=== PATIENT | female | born 1970 | race Caucasian/White ===

== ENCOUNTER → 2016-06-27 | Outpatient (CLI) | payer OTHER ==
[~2016-06-27] VITALS: Ht 182.9 cm; Wt 84.4 kg
[~2016-06-27] MED LIST: ALEVE220 M1 PO; AMBIEN 10 MG TA10 MG PO; AZITHROMYCIN 2250 MG PO; CALCIUM 500 +1 EACH PO; CELEBREX 200 M200 MG PO; CIPRO500 MG PO; CIPROFLOXACIN250 M2 PO; CLONAZEPAM; FISH OIL 1,001000 M2 PO; FLEXERIL PO; FLONASE INH; HYDROCODON-ACE1 EAC5 PO; HYSINGLA ER60 MG PO; KADIAN30 MG PO; MELATONIN 10 M1 EACH PO; MOBIC15 MG PO; NORCO 10-325 T1 EACH PO; OXYCONTIN10 MG PO; SLEEP AID PO; TRAMADOL 50 MG50 MG PO; TYLENOL P.M. E1 EAC3 PO; URIBEL CAPSULE1 EACH PO; VALACYCLOVIR1000 MG PO; VALIUM5 MG PO; VALTREX 500 MG500 M1 PO; VALTREX1000 MG PO; VITAMINC500 PO; WELLBUTRIN 100100 M1 PO; WELLBUTRIN SR150 MG PO; XANAX 0.5 MG0.5 M1 PO; XANAX 0.5 MG0.5 MG
--- NOTE | ~2016-06-27 | HPC ---
[facility] [place] [address] PAIN MANAGEMENT CONSULTATION Name: BARRY STREETER Room #: REG IGSEL Jonny#: [id number] Admission: 06/27/16 Attend Phys: Juan Ramon Borden MD Discharge: Date of : 74 Report #: [id number] THIS REPORT FOR: //name// CC: Glenroy Borden DATE OF SERVICE: 06/27/2016 REASON FOR VISIT: Followup visit for chronic upper back pain and cervicalgia related to marked cervicothoracic scoliosis. HISTORY OF PRESENT ILLNESS: The patient returns to pain clinic today in followup for her medication. She is seen regularly for Hysingla 60 mg. She takes 1 tablet a day and has been able to function beautifully at work and at home with no side effects. She has been on an opioid medication under terms of an agreement for nearly 10 years. Each time she comes in, we review the important aspects of that contract. The most important issue I believe for her at this stage is safeguarding her medication. She has a 15-year-old daughter and a 10-year-old son. We talked about the difference between hydrocodone mg tablets; 5 mg versus 60 mg is a dramatic difference. If someone were to steal or take her medication, catastrophe could occur. I have reviewed this at each visit. She keeps it under lock and julien. Today, she again reports her pain score is a 2, dull aching. With the pain, she is able to function well at work and at home. She is able to sit at her desk comfortably. Standing still seems to be the most significant problem. She is also using nonpharmacologic measures to help manage pain including massage and stretching. General health is otherwise good with no other issues. She is seeing no other physicians regularly at this time. PHYSICAL EXAMINATION: VITAL SIGNS: She is 6 feet tall, a BMI of 25.2, a blood pressure of 131/82, heart rate 75 and respirations 16. MUSCULOSKELETAL: Curvature of her spine is quite evident even through her clothing. She has mild tenderness there today. Range of motion of the upper extremities is good. IMPRESSION: 1. Chronic intractable pain related to severe cervicothoracic scoliosis and spondylosis. 2. Management of high risk medication Hysingla. PLAN: I renewed her medications under terms of our agreement for [address] [address] PAIN MANAGEMENT CONSULTATION Name: BARRY STREETER Room #: REG GISEL JuneAnisaMaryaAnisa#: [id number] Admission: 06/27/16 Attend Phys: Juan Ramon Borden MD Discharge: Date of : 74 Report #: [id number] It has been over 2 years since she had a urine drug screen, and I performed that today. This is becoming required by insurance companies in order to provide opioid therapy cautiously. We will see her back in the pain clinic in 3 months. <ELECTRONICALLY SIGNED> By: Juan Ramon Borden MD 06/29/16 1329 [id number] Juan Ramon Borden MD /irma
[2016-06-27 08:53] VITALS: BP 131/82
[2016-07-01 15:05] LABS: EER PAIN MGT INTERP FINAL (())
== END | disposition home or self-care (01) ==
LOC: PAIN 05-31 08:36
PROVIDERS: Anesthesiology Pain Medicine
DX: G89.29 Other chronic pain (principal); M41.83 Other forms of scoliosis, cervicothoracic region; M47.892 Other spondylosis, cervical region

== ENCOUNTER → 2016-09-17 | Outpatient (CLI) | payer OTHER ==
[~2016-09-17] VITALS: Ht 180.3 cm; Wt 82.0 kg
--- NOTE | ~2016-09-17 | HPC ---
[facility] [place] [address] PAIN MANAGEMENT CONSULTATION Name: BARRY STREETER Room #: REG GISEL Drew.#: [id number] Admission: 09/17/16 Attend Phys: Juan Ramon Borden MD Discharge: Date of : 74 Report #: [id number] THIS REPORT FOR: //name// CC: Glenroy Borden DATE OF REGISTRATION: 09/17/2016. Followup visit for chronic upper back pain, cervicalgia, upper thoracic pain related to a significant congenital cervicothoracic scoliosis. Management of high risk medication. HISTORY OF PRESENT ILLNESS: The patient returns to pain clinic today to discuss her medication. She continues to exceptionally well on Hysingla. She is on 60 mg taking one tablet a day in the morning and this has controlled her musculoskeletal pain quite nicely with literally no significant noticeable side effects. 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 She again describes pain relief substantial at a level of 2, when it is present, it is in her left shoulder and upper back. Medication allows her to sit at her desk longer, stands for a longer period of time without severe pain. OTHER MEDICATIONS: Include Celebrex 200 mg as needed, valacyclovir as needed outbreak of , vitamin C, alprazolam and fluticasone. ALLERGIES: None. PHYSICAL EXAMINATION: GENERAL: She is a delightful 46-year-old pleasant, alert and oriented. VITAL SIGNS: Blood pressure 136/80, heart rate 86, respirations 14. Her BMI is 25.2. EXTREMITIES: She does have very mild tenderness in her cervical spine where there is notable curvature. No weakness of the upper extremities or pain. IMPRESSION: 1. Chronic pain with severe cervicothoracic scoliosis congenital. 2. Management of high risk medication, Hysingla 60 mg 1 tablet a day. This is related, morphine milligram equivalency of 60. We reviewed our opioid agreement last signed in 2015. We talked about the aspects of opioid prescribing for chronic intractable pain on many occasions and reviewed the CDC guidelines today. Shared with her, the results of her last urine drug screen which pleased report was appropriate with only evidence of hydrocodone in the urine as expected from this medication. [address] [address] PAIN MANAGEMENT CONSULTATION Name: BARRY STREETER Room #: REG CONRADRavin Fuller#: [id number] Admission: 09/17/16 Attend Phys: Juan Ramon Borden MD Discharge: Date of : 74 Report #: [id number] Medication provided for 3 months under terms of our agreement. I will see her back in 3 months' time. By: 1119 [id number] Juan Ramon Borden MD /nt
[2016-09-17 09:06] VITALS: BP 137/80
== END | disposition home or self-care (01) ==
LOC: PAIN 07:00
DX: M41.83 Other forms of scoliosis, cervicothoracic region (principal)

== ENCOUNTER → 2016-12-20 | Outpatient (CLI) | payer OTHER ==
[~2016-12-20] VITALS: Ht 180.3 cm; Wt 80.3 kg
[2016-12-20 09:38] VITALS: BP 133/75
== END | disposition home or self-care (01) ==
LOC: PAIN 06:36
DX: M54.12 Radiculopathy, cervical region (principal); M54.14 Radiculopathy, thoracic region; M41.84 Other forms of scoliosis, thoracic region; G89.29 Other chronic pain; F11.20 Opioid dependence, uncomplicated; G47.00 Insomnia, unspecified; Z87.891 Personal history of nicotine dependence

== ENCOUNTER → 2017-03-11 | Outpatient (CLI) | payer OTHER ==
[~2017-03-11] VITALS: Ht 180.3 cm; Wt 78.5 kg
--- NOTE | ~2017-03-11 | HPC ---
[facility] [address] [address] PAIN MANAGEMENT CONSULTATION Name: BARRY STREETER Room #: REG GISEL JuneAnisaMarya.#: [id number] Admission: 03/11/17 Attend Phys: Juan Ramon Borden MD Discharge: Date of : 74 Report #: [id number] THIS REPORT FOR: //name// CC: Glenroy Borden DATE OF SERVICE: 03/11/2017 REASON FOR VISIT: Followup visit for cervical and thoracic pain related to marked scoliosis of the cervicothoracic spine. HISTORY OF PRESENT ILLNESS: The patient returns to pain clinic today for renewal of her Hysingla. She has done well with once a day medication. She has had some exacerbation of pain over the last 6 months. I have given her Celebrex as a co-analgesic. She has had some insomnia, takes 0.5 mg of Xanax for sleep and we have discussed the interaction between opioids and benzodiazepines. 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 She is doing well socially and enjoys her family. At one time, she had significant other, but currently is between relationships. She took a nice vacation in the summer with her children. Her mood has been good. She denies depression or anxiety. PHYSICAL EXAMINATION: GENERAL: She is pleasant, alert and oriented, without signs of overmedication. MUSCULOSKELETAL: Examination of the spine reveals localized pain and tenderness where she has marked scoliotic curve in the thoracolumbar region. She has some mild pain radiating into the left arm. IMPRESSION: 1. Chronic cervicalgia with radiculopathy related to marked cervicothoracic scoliosis with rotation. 2. Management of opioids under strict adherence to an opioid agreement within the CDC guidelines. 3. Insomnia. PLAN: Medications were renewed under terms of our agreement and I plan to see her back in the pain clinic in 3 months. Time spent with the patient 15 minutes. By: [id number] Juan Ramon Borden MD /nt
[2017-03-11 08:53] VITALS: BP 133/58
== END | disposition home or self-care (01) ==
LOC: PAIN 07:02
DX: M54.2 Cervicalgia (principal); M41.83 Other forms of scoliosis, cervicothoracic region; G47.00 Insomnia, unspecified; Z87.891 Personal history of nicotine dependence

== ENCOUNTER → 2017-06-20 | Outpatient (CLI) | payer OTHER ==
[~2017-06-20] VITALS: Ht 180.3 cm; Wt 81.4 kg
[~2017-06-20] MED LIST changes: +ADVIL200 M3 PO; +MACRODANTIN50 M1 PO
--- NOTE | ~2017-06-20 | HPC ---
[facility] [place] [address] PAIN MANAGEMENT CONSULTATION Name: BARRY STREETER Jamia Room #: REG CONRAD Drew.#: [id number] Admission: 06/20/17 Attend Phys: Juan Ramon Borden MD Discharge: Date of : 74 Report #: [id number] THIS REPORT FOR: //name// CC: Glenroy Borden DATE OF SERVICE: 06/20/2017 Followup visit for chronic cervical and thoracic pain with scoliosis of the spine and musculoskeletal components. Management of high risk medication. The patient returns to pain clinic today and is doing very well. Pain is managed. 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 Pain score is 3 with medication. She had some breakthrough medication earlier, but has been able to get by without it after changing some of her work positions. She has had no significant side effects of medication and is grateful that it has allowed her to be much more functional as well as relieved her pain. She has had no misuse or abuse of her medication noted, no red flag behavior, she is on time for her medicines. She receives all medication just from our clinic and is aware of the CDC guidelines and her opioid agreement. We reviewed her MME which is 60 mg with the Hysingla and when she took a little bit her breakthrough pain was no higher than 70. She will carefully monitor her medication. PHYSICAL EXAMINATION: Pleasant, alert and oriented. Blood pressure is 123/66, heart rate 72. BMI is 25. She has tenderness in the upper back and in the area of her curvature. No radicular pain is noted today. IMPRESSION: 1. Chronic cervicalgia with radiculopathy, much improved. She has scoliosis with rotation. 2. Management of opioids under an opioid agreement. 3. Insomnia, improved. PLAN: 1. Medication renewed under terms of our agreement. 2. Referral to Doni Moore for 1-2 sessions of exercise education for cervical thoracic scoliosis. 3. Follow up in 3 months. <ELECTRONICALLY SIGNED> By: Juan Ramon Borden MD 06/24/17 1048 [id number] Juan Ramon Borden MD /nt
[2017-06-20 10:06] VITALS: BP 123/66
== END ==
LOC: PAIN 06:46
DX: M54.12 Radiculopathy, cervical region (principal); M41.84 Other forms of scoliosis, thoracic region; M41.82 Other forms of scoliosis, cervical region; G47.00 Insomnia, unspecified; F11.90 Opioid use, unspecified, uncomplicated; Z79.899 Other long term (current) drug therapy

== ENCOUNTER → 2017-08-29 | Outpatient (CLI) | payer OTHER ==
[~2017-08-29] VITALS: Ht 180.3 cm; Wt 83.0 kg
--- NOTE | ~2017-08-29 | HPC ---
[facility] [place] [address] PAIN MANAGEMENT CONSULTATION Name: BARRY STREETER Jamia Room #: REG [facility] Drew.#: [id number] Admission: 08/29/17 Attend Phys: Juan Ramon Borden MD Discharge: Date of : 74 Report #: [id number] THIS REPORT FOR: //name// CC: Glenroy Borden DATE OF SERVICE: 08/29/2017 Followup visit for severe cervicothoracic scoliosis and new onset low back pain. The patient returns to pain clinic today for her medication. She is about 3 weeks early, but we decided to see her because she has ran out of a very small amount of breakthrough medication that I provided her. She has done exceptionally well with the once a day Hysingla 60 mg tablet. About 6 months ago, I began providing her with hydrocodone 10/325, #30 tablets to be used for breakthrough pain over the course of 3 months. On certain days, she feels that she needs a slight increase in medication and this was offered as a breakthrough. She used all #30 tablets over the course of about 80 days. She is here today requesting a refill. 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 Her functional assessment tool is 22/70 showing good activities with low impact. She is at low risk for addiction at a 3. Her social interactions are good. She denies depression or anxiety. PHYSICAL EXAMINATION: VITAL SIGNS: She is 5 feet 11 inches with a BMI of 25.5. Blood pressure is 149/70, heart rate 95, respirations 14 with an O2 sat of 100%. Pain intensity is a 4/10. Rotational curvature is noted in the cervical, thoracic spine. She also has a curvature in the thoracolumbar region, compensatory. Pain radiates somewhat down into the leg today, which is new consistent with radiculopathy. She has not had an MRI of her lower back. IMPRESSION: 1. Chronic cervicalgia with radiculopathy related to marked cervicothoracic scoliosis with rotation. 2. New onset lower back pain from her compensatory curve. This is in the lumbar and thoracic region. 3. Management of opioids under opioid agreement and within the CDC guideline. She is under 90 morphine equivalents with an average daily use of about 65 MME. PLAN: I renewed her medications with release dates for 4 and 8 weeks today, that should get her into November. She has one prescription to fill from her visit in May. I renewed her hydrocodone for her with a prescription for #30 tablets [place] [address] PAIN MANAGEMENT CONSULTATION Name: BARRY STREETER Room #: REG [facility].#: [id number] Admission: 08/29/17 Attend Phys: Juan Ramon Borden MD Discharge: Date of : 74 Report #: [id number] I plan to see her back in the pain clinic in 3-1/2 months. <ELECTRONICALLY SIGNED> By: Juan Ramon Borden MD 09/30/17 1408 1507 21 Juan Ramon Borden MD /irma
[2017-08-29 13:51] VITALS: BP 149/70
== END ==
LOC: PAIN 10:29
DX: M41.83 Other forms of scoliosis, cervicothoracic region (principal); M54.12 Radiculopathy, cervical region; Z79.891 Long term (current) use of opiate analgesic

== ENCOUNTER → 2017-11-25 | Outpatient (CLI) | payer OTHER ==
[~2017-11-25] VITALS: Ht 180.3 cm; Wt 81.6 kg
[~2017-11-25] MED LIST changes: -MACRODANTIN50 M1 PO
--- NOTE | ~2017-11-25 | HPC ---
[facility] [place] [address] [address] PAIN MANAGEMENT CONSULTATION Name: BARRY STREETER Jamia Room #: REG [facility] Drew.#: [id number] Admission: 11/25/17 Attend Phys: Juan Ramon Borden MD Discharge: Date of : 74 Report #: [id number] THIS REPORT FOR: //name// CC: Glenroy Borden DATE OF SERVICE: 11/25/2017 Followup visit for cervicothoracic scoliosis with chronic pain. The patient returns to pain clinic today and she has reports and x-ray films taken of the low back as well as the neck. These baseline films were taken when she was complaining of new onset low back pain in August. I did not review the films, the report of both. The low back report seems fairly mild. It describes mild facet arthropathy in the lower lumbar spine and a little bit of disk bulging at L5-S1. For someone who is 47 years of age, I think that these findings are fairly benign. I think there is no treatment specific that I would recommend other than continued exercise and physical therapy approach. She needs to be cautious about her use of nonsteroidal anti-inflammatory drugs on a daily basis. She has been followed for some renal issues by the urologists at . I did ask for her BUN and creatinine and glomerular filtration rate. The GFR to be sent to our office today and it looks as though her kidney function is quite good. I think she is okay taking nonsteroidal anti-inflammatory drugs as long she closely monitors it. It does provide some benefit for her neck. We next reviewed her neck x-rays. She seemed a bit surprised to find that she had "arthritis" of her spinal joints. We discussed this at some length. She has a dextroconvex curvature of the cervical spine with a compensatory mechanism for the levoscoliosis of the thoracic spine. This causes a straightening of the cervical lordosis and a little bit of retrolisthesis of C4-C5 and C5-C6. As a result, you would expect there are some degenerative disk changes and degenerative facet arthropathy that is prominent mostly at C4-C5 and C5-C6. This does create some foraminal narrowing, although she is asymptomatic from that without arm or shoulder pain. Most of her pain remains in the back and I think this is consistent with cervicothoracic spondylosis. She would respond nicely I think to the combination of her hydrocodone as well as ibuprofen and she can continue on that as I described above. PHYSICAL EXAMINATION: She is an attractive 47-year-old, 5 feet 11 inches, BMI remains low at 25.1. Her blood pressure is 119/57, heart rate 73. Pain score is low at 2 today. She is not a fall risk. She moves easily from standing position and walks without difficulty. I did examine her low back and hips [address] [address] PAIN MANAGEMENT CONSULTATION Name: BARRY STREETER Jamia Room #: REG [facility] Jonny#: [id number] Admission: 11/25/17 Attend Phys: Juan Ramon Borden MD Discharge: Date of : 74 Report #: [id number] today. She has no pain with internal and external rotation other than some mild exacerbation of a little tenderness in the sacroiliac joint on the left. IMPRESSION: 1. Chronic cervicalgia with radiculopathy at this time. She has scoliosis with rotation. 2. Low back pain, which is generally related to expected degenerative changes for age. 3. Management of opioids under terms of written opioid agreement and within the CDC guideline. She is currently receiving a single tablet of Hysingla 60 mg in the morning and I allow her to take 1 hydrocodone for breakthrough pain for activities that are extensive throughout the day and she needs a little boost. I talked importantly about safeguarding medications. She is able to be highly functional and is grateful to the pain relief that she gets from her medication. She denies any significant side effects and understands the importance of safeguarding all medications under terms of our agreement. Followup visit planned in 3 months. By: 1102 1534 Juan Ramon Borden MD /nt
[2017-11-25 10:57] VITALS: BP 119/57
== END ==
LOC: PAIN 06:53
DX: M41.83 Other forms of scoliosis, cervicothoracic region (principal); M54.5 Low back pain; F11.90 Opioid use, unspecified, uncomplicated

== ENCOUNTER → 2018-02-10 | Outpatient (CLI) | payer OTHER ==
[~2018-02-10] VITALS: Ht 180.3 cm; Wt 78.9 kg
[~2018-02-10] MED LIST changes: +MACRODANTIN50 M1 PO
--- NOTE | ~2018-02-10 | CRIT ---
[facility] [place] [address] CRITICAL CARE NOTE Name: BARRY STREETER Jamia Room #: REG GISEL Fuller#: [id number] Admission: 02/10/18 Attend Phys: Juan Ramon Borden MD Discharge: Date of : 74 Report #: [id number] THIS REPORT FOR: //name// CC: Glenroy Rasmussen DATE OF SERVICE: 02/10/2018 Followup visit for severe cervicothoracic scoliosis and chronic pain. The patient returns to the pain clinic today doing reasonably well. The low back pain that was a problem for her at last visit has improved with exercise. She reports that she is doing well at work and at home. She has also been more active in her samaritan over the last 1-2 years. She seems stable and happy. She denies any significant side effects from her medication, even constipation. She is grateful for the pain relief that it provides, and she has a pain intensity of 2 taking one tablet a day. This is hydrocodone 60 mg in the form of Hysingla, a long-acting slow release preparation. She has been an excellent responder to the medication. We talked about the opioid crisis and particularly the extreme responsibility that she has to safeguard her medications. As she has younger children, we talked about the role of safeguarding medications when there are children in the home. All other medications reviewed and reconciled, there have been no significant changes. There have been no other changes in her medical history as well. Pain is also managed by nonpharmacologic measures including massage, stretching and exercise. She has learned to pace herself. She understands the concept of pain management well with many years of visits to our clinic. PHYSICAL EXAMINATION: GENERAL: She is pleasant, alert and oriented, without any signs of overmedication. VITAL SIGNS: Her blood pressure 123/69, heart rate 90, respirations 16. BMI is 24.3. EXTREMITIES: She moves easily from sitting to standing position. She has only mild tenderness in her upper back in the area where she has a notable scoliosis in the cervical thoracic region. IMPRESSION: 1. Chronic upper back pain with cervicothoracic scoliosis. 2. Management of high risk medications under terms of written opioid agreement. [address] [address] CRITICAL CARE NOTE Name: BARRY STREETER Jamia Room #: REG [facility].#: [id number] Admission: 02/10/18 Attend Phys: Juan Ramon Borden MD Discharge: Date of : 74 Report #: [id number] PLAN: I renewed her medications for 3 months. We have also reviewed her prescription monitoring through the [facility] PDMP. It shows medications provided through our clinic including the Hysingla as well as a small amount of hydrocodone 10/325, which she uses for severe pain no more than once or twice a day when the pain is severe. By: 1213 0201 Juan Ramon Borden MD /irma
[2018-02-10 09:34] VITALS: BP 123/69
== END ==
LOC: PAIN 06:56
DX: M41.83 Other forms of scoliosis, cervicothoracic region (principal); G89.29 Other chronic pain; Z79.891 Long term (current) use of opiate analgesic

== ENCOUNTER → 2018-05-08 | Outpatient (CLI) | payer OTHER ==
[~2018-05-08] VITALS: Ht 180.3 cm; Wt 81.6 kg
--- NOTE | ~2018-05-08 | HPC ---
[facility] [place] [address] PAIN MANAGEMENT CONSULTATION Name: BARRY STREETER Jamia Room #: REG GISEL Russell.#: [id number] Admission: 05/08/18 Attend Phys: Juan Ramon Borden MD Discharge: Date of : 74 Report #: [id number] THIS REPORT FOR: //name// CC: Glenroy Borden DATE OF SERVICE: 05/08/2018 Followup visit for chronic neck and shoulder pain. The patient returns to pain clinic today for 3-month followup and renewal of her pain medication. She is currently taking Hysingla 60 mg once a day and I have provided with a breakthrough medication of hydrocodone 10/325 that she can take on an as needed basis. Ninety tablets seem to last about 3 months. She takes it cautiously and carefully. She safeguards her medication. She has a teenager in the home. She denies any significant side effects. With medications, she is able to work fulltime and is doing well. We talked about her job today and she sounds enthusiastic about work and upbeat about her responsibilities and activities there. Without pain medication, she does not feel she would be capable of working at the same level. She understands the opioid agreement clearly and she understands that at her MME of roughly 70, she is in the second category of the CDC guideline. We have been trying to keep people at the lowest effective dose. She is doing well at this level. For the time being, I am not going to adjust her medication down, but I have told her that in the future, we may consider reducing her slowly if possible. It is just hard to make any changes when she is doing so well on this nice long-acting medication that provides stable pain relief around the clock for her. PHYSICAL EXAMINATION: Pleasant, alert and oriented, without signs of depression, anxiety, or overmedication. She is 5 feet 11 and 179 pounds with a BMI of 25.1. Pain intensity is a 2 with medication. Blood pressure 126/67, heart rate 79. Notable scoliosis is seen in the neck and upper back. Mild tenderness in that region. No radiating pain into the arms at this time. IMPRESSION: 1. Chronic intractable upper back pain with spondylosis of the cervical thoracic spine with scoliosis. 2. Management of high risk medications under terms of written opioid agreement. [address] [address] PAIN MANAGEMENT CONSULTATION Name: BARRY STREETER Room #: REG [facility] Drew.#: [id number] Admission: 05/08/18 Attend Phys: Juan Ramon Borden MD Discharge: Date of : 74 Report #: [id number] PLAN: I renewed her medications with plan to see her back in 3 months. By: 1230 1805 Juan Ramon Borden MD /nt
[2018-05-08 09:42] VITALS: BP 126/67
== END ==
LOC: PAIN 04:46
DX: M47.893 Other spondylosis, cervicothoracic region (principal); M41.83 Other forms of scoliosis, cervicothoracic region; G89.4 Chronic pain syndrome

== ENCOUNTER → 2018-08-04 | Outpatient (CLI) | payer OTHER ==
[~2018-08-04] VITALS: Ht 180.3 cm; Wt 78.9 kg
[2018-08-04 10:58] VITALS: BP 116/81
--- NOTE | 2018-08-04 11:08 | NUR ---
Pain Clinic Assessment: 1. History of Osteoarthritis: Not Applicable History of Rheumatoid Arthritis: Not Applicable 2. Height: 5 ft. 11 in. 180.3 cm. Weight: 174.0 lb. oz. 78.926 kg. Patient's BMI: 24.3 3. Vital Signs: BP: 116/81 Pulse: 78 Resp: 16 Temp: 02 Sat: 100 ECG Mon: 4. Pain Intensity: 2 5. Fall Risk: Dizziness: N Needs help standing or walking: N Fallen in the last 3 months: N Fall risk comments: 6. Patient on Blood Thinner: None 7. History of Hypertension: N 8. Opioid Therapy greater than 6 weeks: Y Opiate Contract Signed: 08/29/17 9. Risk Assessment Tool Provided: LOW RISK 3 10. Functional Assessment Tool: 11. Recreational Drug Use: Never Drug Type: Tobacco Use: Former Smoker Tobacco Type: Amount or Packs/day: How Many Years: Alcohol Use: Yes Frequency: Weekly Quant: WINE 2 A WEEK
--- NOTE | 2018-08-05 07:13 | HPC ---
[facility] [address] [place] [address] PAIN MANAGEMENT CONSULTATION Name: FERDINANDBARRY P Room #: REG GISEL Fuller#: [id number] Admission: 08/04/18 Attend Phys: Yana Anthony Discharge: Date of : 74 Report #: [id number] THIS REPORT FOR: //name// CC: Yana Anthony Glenroy Rasmussen DATE OF SERVICE: 08/04/2018 CHIEF COMPLAINT: Chronic neck and shoulder pain. HISTORY OF PRESENT ILLNESS: This is a very pleasant 48-year-old female that returns to the pain clinic today for her ongoing neck and shoulder pain. She tells me her pain today is 2/10, worse when she is standing for prolonged periods of time or sitting at her desk for a prolonged time. She tells me her medications are very beneficial as well as stretching and using massage. She is able to work and be active with her family with these medications. She rates it as a 2/10 today. She denies any problems with constipation or daytime sleepiness. She tells me that she has been sick several times this winter and not feeling up to par and has been more tired than normal, but does not feel that this is associated with her medicines in anyway. She tells me that she is getting ready to go on vacation with her family. She has a daughter that is a Senior, so it is an exciting time for her and her family. The patient would like a refill of her medications today. ALLERGIES: No known drug allergies. CURRENT LIST OF MEDICATIONS: Hysingla 60 mg tablets once a day, hydrocodone 10/325 half to one tablet daily, Macrodantin 50 mg as needed, valacyclovir 1000 mg daily as needed, ascorbic acid daily, Xanax 0.5 mg at bedtime as needed, Flonase as needed. PQRS: 1. She denies history of osteoarthritis or rheumatoid arthritis. 2. Height is 5 feet 11 inches, weight is 174. BMI is 24. 3. Vital Signs: Blood pressure 116/81, pulse is 76, respirations 16, oxygen sat is 100%. 4. Pain score is 2/10. 5. Fall risk: Denies dizziness, does not need help walking or standing. Has not fallen in the last 3 months. 6. The patient is not on any blood thinners, does not take medicines for hypertension. 7. Opioid therapy was greater than 6 weeks, therefore, opioid contract is on the chart. 8. Risk assessment tool is low. Her functional assessment is 22/70. 9. Recreational drug use, she denies. She is a former smoker and occasionally drinks alcohol. [address] [address] PAIN MANAGEMENT CONSULTATION Name: CARLINE STREETERELBERT Blandon Room #: REG [facility] Jonny#: [id number] Admission: 08/04/18 Attend Phys: Yana Anthony Discharge: Date of : 74 Report #: [id number] 10. We did check the prescription monitoring system, the patient is filling appropriately from Dr. Juan Ramon Borden for her narcotic medications. There is also a recent drug screen on the chart on the patient. PHYSICAL EXAMINATION: GENERAL: The patient is a well-developed, well-nourished 48-year-old female that appears her stated age. She is alert and orientated and her affect is appropriate. HEENT: Normocephalic, atraumatic. Extraocular muscles are intact. Mucous membranes are moist. NECK: Without adenopathy and she has good range of motion in her neck today, but she does have notable scoliosis noted in her neck and upper back. MUSCULOSKELETAL: Mild tenderness noted in her upper back. The patient walks with a normal gait. Muscle strength is judged to be 5/5 for all major muscle groups in upper extremities and lower extremities bilaterally. ASSESSMENT: 1. 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 2. Management of high risk medication under terms of an opioid agreement. We reviewed the fact that opiate medications are being used to provide analgesia adequate to support activities of daily living, not attempting to achieve a specific pain score on the 0-10 Visual Analog Scale. The current opiate medications are providing sufficient analgesia to allow the patient to participate in activities of daily living. The patient is not exhibiting any aberrant behavior suggestive of drug diversion. The patient is not having any adverse reactions to medications. The patient is not suffering from daytime somnolence or mental acuity changes. The patient is managing opiate-induced constipation with appropriate lweh-zzk-alvisfp agents and dietary considerations. The patient was counseled on concern for caution with operating a motor vehicle while using opiate medications. A physical exam was performed and the patient's functional status was evaluated. All patients with back pain were advised against the bed rest greater than 4 days and were advised to return to normal activities. Pain score assessment was noted and the treatment plan was reviewed with the patient. All current medications, both prescribed and OTC were reviewed and reconciled on the electronic medical record. Tobacco screening was accomplished and smoking cessation was advised when indicated. BMI was noted and diet/exercise modification was recommended for all patients following outside normal parameters. I reviewed with the patient today their responsibilities to safeguard prescription medications, reviewed their responsibility to utilize medications only as prescribed by the physician. They are to seek and receive pain [address] [address] PAIN MANAGEMENT CONSULTATION Name: BARRY STREETER Room #: REG [facility]#: [id number] Admission: 08/04/18 Attend Phys: Yana Avinaalicia Discharge: Date of : 74 Report #: [id number] medications only from 1 physician group ( [facility]). They are to use 1 pharmacy and keep the clinic informed if they change pharmacies. Their responsibilities include making followup visits in a timely fashion and to avoid abrupt discontinuation of medication usage. Their responsibilities further include bringing their medications (bottles from the pharmacy with residual pills) to the visit for possible confirmation of pill counts and the patient understands it is their responsibility to submit to random drug screens to ensure both that the medications prescribed are present, and that no other controlled substances are present. All prescriptions provided today were generated electronically. PLAN: 1. We discussed treatment options with the patient today. The patient tells me that the Hysingla is working well for her, she is able to work and be active with her family and her current Hysingla is 60 mg once a day dose. Scripts given for that for #30 to be refilled today, 4-week for a week and an 8-week. Second medication is hydrocodone 10/325 to take half to one tablet daily. 2. The patient is going to be traveling out of the country in the next month. I did remind her to safeguard her medications at all times and keep them locked up safe in her room when she is not with them. 3. The patient falls in the low MME guidelines per the CDC, about 70 MME per day; therefore it is appropriate for her to have 3 months of medications per clinic guidelines. The patient is seen in collaboration with and Dr. Borden did also see the patient today at this visit. <ELECTRONICALLY SIGNED> By: Yana Anthony 08/05/18 0713 [id number] Yana Anthony /nt
== END ==
LOC: PAIN 07:13
DX: M41.82 Other forms of scoliosis, cervical region (principal); M41.84 Other forms of scoliosis, thoracic region; M47.892 Other spondylosis, cervical region; M47.894 Other spondylosis, thoracic region; G89.4 Chronic pain syndrome; Z79.899 Other long term (current) drug therapy; Z79.891 Long term (current) use of opiate analgesic

== ENCOUNTER → 2018-10-27 | Outpatient (CLI) | payer OTHER ==
[~2018-10-27] VITALS: Ht 180.3 cm; Wt 79.7 kg
[2018-10-27 09:05] VITALS: BP 120/71
--- NOTE | 2018-10-27 09:17 | NUR ---
Pain Clinic Assessment: 1. History of Osteoarthritis: Not Applicable History of Rheumatoid Arthritis: Not Applicable 2. Height: 5 ft. 11 in. 180.3 cm. Weight: 175.8 lb. oz. 79.742 kg. Patient's BMI: 24.5 3. Vital Signs: BP: 120/71 Pulse: 82 Resp: 16 Temp: 02 Sat: 100 ECG Mon: 4. Pain Intensity: 2-3 5. Fall Risk: Dizziness: N Needs help standing or walking: N Fallen in the last 3 months: N Fall risk comments: 6. Patient on Blood Thinner: None 7. History of Hypertension: N 8. Opioid Therapy greater than 6 weeks: Y Opiate Contract Signed: 08/29/17 9. Risk Assessment Tool Provided: LOW RISK 3 10. Functional Assessment Tool: 11. Recreational Drug Use: Never Drug Type: Tobacco Use: Former Smoker Tobacco Type: Amount or Packs/day: How Many Years: Alcohol Use: Yes Frequency: Weekly Quant: 1-2 A WEEK
--- NOTE | 2018-10-28 14:37 | HPC ---
[facility] [address] [place] [address] PAIN MANAGEMENT CONSULTATION Name: FERDINANDBARRY P Room #: REG GISEL Fuller#: [id number] Admission: 10/27/18 ������������������ Attend Phys: Yana Anthony Discharge: ������������������ Date of : 74 Report #: [id number] THIS REPORT FOR: //name// CC: Yana Anthony Glenroy Robledoon DATE OF SERVICE: 10/27/2018 CHIEF COMPLAINT: Chronic neck and shoulder pain. HISTORY OF PRESENT ILLNESS: This is a very pleasant 48-year-old female who returns to the Pain Clinic today for refill of her medications for her ongoing neck and shoulder pain. She tells me that her pain score is a 2-3 today, which is an average score for her of a dull achy tingly pain. She said it is worse if she is standing too long or riding her bike too long. Medications, massage and stretching are helpful. She feels that the Hysingla has helped her tremendously. She takes that on a daily basis and occasional hydrocodone half a pill once or twice a day. She denies any problems with constipation or daytime sleepiness. She does not feel overmedicated with these medicines. She would like a refill today. ALLERGIES: No known drug allergies. MEDICATIONS: Hydrocodone 10/325 half to one tablet a day, Hysingla 60 mg daily, Advil 200 mg daily, valacyclovir p.r.n., ascorbic acid daily, Xanax 0.5 mg at bedtime p.r.n. and Flonase as needed. PQRS: 1. She denies history of osteoarthritis or rheumatoid arthritis. 2. Height is 5 feet 11 inches, weight is 175, BMI is 24. 3. Vital signs: Blood signs 120/71, pulse is 82, respirations 16, oxygen sat is 100. 4. Pain score is 2/10. 5. Fall risk. Denies dizziness. Does not need to help walking or standing, has not fallen in the last 3 months. 6. The patient is not on any blood thinners or any hypertension medicines. 7. Opioid therapy is greater than 6 weeks. Therefore, an opioid signed contract is on the chart. 8. Risk assessment tool is low. Functional assessment is . 9. Recreational drug use, she denies. She is a former smoker and does use Nicorette gum and she frequently uses alcohol 1-2 drinks a week. We did check the prescription monitoring system. The patient is filling appropriately from Dr. Juan Ramon Borden for her narcotics. We did check a random drug screen on this patient today. There are no aberrant behaviors noted and she does tell me she safeguards her medications. [address] [address] PAIN MANAGEMENT CONSULTATION Name: FERDINANDBARRY P Room #: REG GISEL Fuller#: [id number] Admission: 10/27/18 ������������������ Attend Phys: Ayna SOULEYMANE Anthony Discharge: ������������������ Date of : 74 Report #: [id number] PHYSICAL EXAMINATION: GENERAL: This is a well-developed, well-nourished, 48-year-old female, who returns to the pain clinic today. She is alert and orientated and her affect is appropriate. HEENT: Normocephalic, atraumatic. Extraocular eye muscles are intact. Mucous membranes are moist. NECK: Without adenopathy. She does have good range of motion, does have some scoliosis noted in her neck and thoracic area. MUSCULOSKELETAL: Complains of some tenderness in her thoracic region. She walks with a normal gait. Muscle strength in upper and lower extremities is judged to be 5/5 from all major muscle groups bilaterally. ASSESSMENT: 1. Chronic intractable upper back pain with spondylosis of the cervical and thoracic region with scoliosis. 2. Management of high risk medications under terms of written opioid agreement. We reviewed the fact that opiate medications are being used to provide analgesia adequate to support activities of daily living, not attempting to achieve a specific pain score on the 0-10 Visual Analog Scale. The current opiate medications are providing sufficient analgesia to allow the patient to participate in activities of daily living. The patient is not exhibiting any aberrant behavior suggestive of drug diversion. The patient is not having any adverse reactions to medications. The patient is not suffering from daytime somnolence or mental acuity changes. The patient is managing opiate-induced constipation with appropriate tnsy-bgz-ecmmrrb agents and dietary considerations. The patient was counseled on concern for caution with operating a motor vehicle while using opiate medications. A physical exam was performed and the patient's functional status was evaluated. All patients with back pain were advised against the bed rest greater than 4 days and were advised to return to normal activities. Pain score assessment was noted and the treatment plan was reviewed with the patient. All current medications, both prescribed and OTC were reviewed and reconciled on the electronic medical record. Tobacco screening was accomplished and smoking cessation was advised when indicated. BMI was noted and diet/exercise modification was recommended for all patients following outside normal parameters. I reviewed with the patient today their responsibilities to safeguard prescription medications, reviewed their responsibility to utilize medications only as prescribed by the physician. They are to seek and receive pain medications only from 1 physician group ([facility]). They are to use 1 pharmacy and keep the clinic informed if they change pharmacies. Their responsibilities include making followup visits in a timely fashion and to avoid [address] [address] PAIN MANAGEMENT CONSULTATION Name: BARRY STREETER Room #: REG [facility] Jonny#: [id number] Admission: 10/27/18 ������������������ Attend Phys: Yana Anthony Discharge: ������������������ Date of : 74 Report #: [id number] abrupt discontinuation of medication usage. Their responsibilities further include bringing their medications (bottles from the pharmacy with residual pills) to the visit for possible confirmation of pill counts and the patient understands it is their responsibility to submit to random drug screens to ensure both that the medications prescribed are present, and that no other controlled substances are present. All prescriptions provided today were generated electronically. PLAN: 1. We discussed treatment options with the patient today. The patient tells me she is doing fairly well on her current medication regimen, would like a refill of these medicines. Scripts given today for Hysingla 60 mg, #30 for today, 4-week and 8-week release and hydrocodone 10/325, #90. This places the patient at 65 morphine milliequivalents per day, which is in the CDC guidelines between 50 and 90. 2. The patient will follow up in [address] Juan Ramon Borden did see the patient and collaborated care on this patient today. 3. We did check a urine drug screen today for a random drug screen. ��������������������������������������������� <ELECTRONICALLY SIGNED> ���������������������������������������� By: Yana Anthony ��������������������������������������������� 10/28/18 1437 [id number] [id number] Yana Anthony /irma
== END ==
LOC: PAIN 06:51
DX: G89.29 Other chronic pain (principal); M47.812 Spondylosis without myelopathy or radiculopathy, cervical region; M47.814 Spondylosis without myelopathy or radiculopathy, thoracic region; M41.84 Other forms of scoliosis, thoracic region; Z79.899 Other long term (current) drug therapy; Z79.891 Long term (current) use of opiate analgesic

== ENCOUNTER → 2019-01-29 | Outpatient (CLI) | payer BC ==
[~2019-01-29] VITALS: Ht 180.3 cm; Wt 77.1 kg
[2019-01-29 08:49] VITALS: BP 122/67
--- NOTE | 2019-01-29 08:53 | NUR ---
Pain Clinic Assessment: 1. History of Osteoarthritis: Not Applicable History of Rheumatoid Arthritis: Not Applicable 2. Height: 5 ft. 11 in. 180.3 cm. Weight: 170.0 lb. oz. 77.112 kg. Patient's BMI: 23.7 3. Vital Signs: BP: 122/67 Pulse: 80 Resp: 16 Temp: 02 Sat: 100 ECG Mon: 4. Pain Intensity: 2 5. Fall Risk: Dizziness: N Needs help standing or walking: N Fallen in the last 3 months: N Fall risk comments: 6. Patient on Blood Thinner: None 7. History of Hypertension: N 8. Opioid Therapy greater than 6 weeks: Y Opiate Contract Signed: 08/29/17 9. Risk Assessment Tool Provided: LOW RISK 3 10. Functional Assessment Tool: 11. Recreational Drug Use: Never Drug Type: Tobacco Use: Former Smoker Tobacco Type: Amount or Packs/day: How Many Years: Alcohol Use: Yes Frequency: Weekly Quant:
--- NOTE | 2019-01-30 11:23 | HPC ---
[facility] [address] [place] [address] PAIN MANAGEMENT CONSULTATION Name: CARLINE STREETERELBERT Blandon Room #: REG GISEL Fuller#: [id number] Admission: 01/29/19 Attend Phys: Yana Anthony Discharge: Date of : 74 Report #: [id number] THIS REPORT FOR: //name// CC: Yana Anthony Glenroy Rasmussen DATE OF SERVICE: 01/29/2019 CHIEF COMPLAINT: Chronic neck and shoulder pain. HISTORY OF PRESENT ILLNESS: This is a very pleasant 48-year-old female who returns to the pain clinic today for a refill of her medications for her neck and shoulder pain. She reports a pain score of 2/10 today. She tells me that Hysingla works very well in controlling her pain. Sitting at her desk or standing for prolonged period of time does exacerbate her pain, but the medications and massage and stretching are very beneficial. She tells me when she has her pain, it is a dull, aching, tingly feeling. She does take hydrocodone averaging 1 a day as well as her Hysingla. She denies any problems with constipation or daytime sleepiness. The patient tells me that she is undergoing changes at work. Their company was bought out, so therefore she had to change insurance companies. The new company will be requiring a prior authorization for her medications. Then, she is getting in February, so that may be having a change in her insurance again. She is unsure, dependent on how good a coverage she gets on her Hysingla from her current insurance company. She does know that she will need a prior authorization for this medicine. She has been on it since 2012. It has been very beneficial. She tells me she had tried hydrocodone and oxycodone in the past, but did not get good pain relief until she was on the Hysingla long-acting, which is also as an abuse deterrent and is helpful when she has children within the house taking this medication instead of numerous short-acting pain pills. We will obtain the information for her prior authorization and work on that before she is due to fill at the end of January. ALLERGIES: No known drug allergies. MEDICATIONS: Hydrocodone 10/325 one tablet a day, Hysingla 60 mg daily, Macrodantin p.r.n., ibuprofen p.r.n., valacyclovir p.r.n., vitamin C daily, alprazolam 0.5 at bedtime and Flonase daily. PQRS: 1. She denies history of osteoarthritis or rheumatoid arthritis. 2. Height is 5 feet 11 inches, weight is 170, BMI is 23. 3. VITAL SIGNS: Blood pressure 122/67, pulse is 80, respirations 16, oxygen sat is 100. 4. Pain score is 2/10. [address] [address] PAIN MANAGEMENT CONSULTATION Name: YOKASTA STREETERRigoberto Blandon Room #: REG [facility] Jonny#: [id number] Admission: 01/29/19 Attend Phys: Yana Anthony Discharge: Date of : 74 Report #: [id number] 5. Denies dizziness, does not need help walking or standing, has not fallen in the last 3 months. 6. Not on any blood thinners and does not take medicine for hypertension. 7. Opioid therapy is greater than 6 weeks; therefore, an opioid signed contract is on the chart. Her risk assessment tool is low. Functional assessment is 22/70. 8. Recreational drug use, denies. She is a former smoker and occasionally drinks alcohol. We did check the prescription monitoring system. The patient is due to fill at the end of January, but we need to obtain a prior authorization before that. She has a recent drug screen on the chart as well. PHYSICAL EXAMINATION: GENERAL: This is a well-developed, well-nourished 48-year-old female who appears her stated age, placing her pain score today at 2/10. HEENT: Normocephalic, atraumatic. Extraocular eye muscles are intact. Mucous membranes are moist. NECK: Without adenopathy or JVD. She does have scoliosis in her neck and thoracic area. Complains of tenderness in her neck with range of motion that does radiate into her arm. MUSCULOSKELETAL: Has tenderness in her thoracic region, generalized. She walks with a normal gait. Her upper and lower extremity strength judged to be 5/5 in all major muscle groups, symmetrical in tone. ASSESSMENT: 1. 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 2. Scoliosis. 3. Management of high risk medications under terms of written opioid agreement. We reviewed the fact that opiate medications are being used to provide analgesia adequate to support activities of daily living, not attempting to achieve a specific pain score on the 0-10 Visual Analog Scale. The current opiate medications are providing sufficient analgesia to allow the patient to participate in activities of daily living. The patient is not exhibiting any aberrant behavior suggestive of drug diversion. The patient is not having any adverse reactions to medications. The patient is not suffering from daytime somnolence or mental acuity changes. The patient is managing opiate-induced constipation with appropriate ohtx-ckp-jchkmuh agents and dietary considerations. The patient was counseled on concern for caution with operating a motor vehicle while using opiate medications. A physical exam was performed and the patient's functional status was evaluated. All patients with back pain were advised against the bed rest greater than 4 days and were advised to return to normal activities. Pain score assessment was [facility] [address] [place] [address] PAIN MANAGEMENT CONSULTATION Name: BARRY STREETER Room #: REG [facility].#: [id number] Admission: 01/29/19 Attend Phys: Yana Anthony Discharge: Date of : 74 Report #: [id number] noted and the treatment plan was reviewed with the patient. All current medications, both prescribed and OTC were reviewed and reconciled on the electronic medical record. Tobacco screening was accomplished and smoking cessation was advised when indicated. BMI was noted and diet/exercise modification was recommended for all patients following outside normal parameters. I reviewed with the patient today their responsibilities to safeguard prescription medications, reviewed their responsibility to utilize medications only as prescribed by the physician. They are to seek and receive pain medications only from 1 physician group ( [facility]). They are to use 1 pharmacy and keep the clinic informed if they change pharmacies. Their responsibilities include making followup visits in a timely fashion and to avoid abrupt discontinuation of medication usage. Their responsibilities further include bringing their medications (bottles from the pharmacy with residual pills) to the visit for possible confirmation of pill counts and the patient understands it is their responsibility to submit to random drug screens to ensure both that the medications prescribed are present, and that no other controlled substances are present. All prescriptions provided today were generated electronically. PLAN: 1. We discussed treatment options with the patient today. The patient is doing quite well on her current pain regimen. The Hysingla works very well in controlling her pain. Scripts given today for 60 mg of Hysingla #30, for release today, 4-week and 8-week, as well as hydrocodone #30, 10/325. This is a 1-month medication. The patient still has some existing hydrocodone from previous prescription. 2. We will obtain a prior authorization for her Hysingla before her refill at the end of the month. 3. The patient will follow up in 3 months. The patient is seen today with Dr. Borden who also collaborated care. <ELECTRONICALLY SIGNED> By: Yana Anthony 01/30/19 1123 [id number] Yana Anthony /nt
== END ==
LOC: PAIN 06:46
DX: M47.812 Spondylosis without myelopathy or radiculopathy, cervical region (principal); M47.814 Spondylosis without myelopathy or radiculopathy, thoracic region; M41.9 Scoliosis, unspecified; Z79.899 Other long term (current) drug therapy; Z79.891 Long term (current) use of opiate analgesic

== ENCOUNTER → 2019-05-11 | Outpatient (CLI) | payer BC ==
[~2019-05-11] VITALS: Ht 180.3 cm; Wt 83.6 kg
[2019-05-11 08:40] VITALS: BP 127/69
--- NOTE | 2019-05-11 08:59 | NUR ---
Pain Clinic Assessment: 1. History of Osteoarthritis: SHE THINKS MILD ARTHRITIS IN HER BACK History of Rheumatoid Arthritis: DENIES 2. Height: 5 ft. 11 in. 180.3 cm. Weight: 184.2 lb. oz. 83.553 kg. Patient's BMI: 25.7 3. Vital Signs: BP: 127/69 Pulse: 70 Resp: 14 Temp: 02 Sat: 100 ECG Mon: 4. Pain Intensity: 3 5. Fall Risk: Dizziness: N Needs help standing or walking: N Fallen in the last 3 months: N Fall risk comments: 6. Patient on Blood Thinner: None 7. History of Hypertension: N 8. Opioid Therapy greater than 6 weeks: Y Opiate Contract Signed: 08/29/17 9. Risk Assessment Tool Provided: LOW RISK 3 10. Functional Assessment Tool: 11. Recreational Drug Use: Never Drug Type: Tobacco Use: Former Smoker Tobacco Type: Amount or Packs/day: How Many Years: Alcohol Use: Yes Frequency: Weekly Quant:
--- NOTE | 2019-05-12 08:31 | HPC ---
[facility] [address] [place] [address] PAIN MANAGEMENT CONSULTATION Name: BARRY STREETER Jamia Room #: REG GISEL Fuller#: [id number] Admission: 05/11/19 Attend Phys: Yana Anthony Discharge: Date of : 74 Report #: [id number] THIS REPORT FOR: //name// CC: Yana Borden MD DATE OF SERVICE: 05/11/2019 CHIEF COMPLAINT: Chronic neck and shoulder pain. HISTORY OF PRESENT ILLNESS: This is a very pleasant 49-year-old female who returns to the pain clinic today for refill of her medications that she uses to help treat her ongoing neck and bilateral shoulder pain. She occasionally also has low back pain, rating it at 3/10 today, but it is an achy, burning, tingling feeling that is worse with prolonged sitting or standing. She feels as long as she uses her medication appropriately and also uses massage and stretching, she is able to function at a fairly high level with her medications. She denies any problems with constipation or daytime sleepiness. She reports that she did have some periods of pain that were increased over the past 3 months because she has recently remarried and moved into a different house and has been very active that did cause increases in her pain as well as stressful situations. She feels that she is slowly getting back to her normal routine; therefore, her pain is finally calming down again slightly. Today she would like refills of her Hysingla. ALLERGIES: No known drug allergies. CURRENT LIST OF MEDICATIONS: Hysingla 60 mg daily, hydrocodone 10/325 p.r.n., Macrodantin 50 mg p.r.n., ibuprofen as needed, valacyclovir 1000 mg daily p.r.n., vitamin C, Flonase and Xanax 0.5 mg at bedtime. PQRS: 1. She denies any history of osteoarthritis or rheumatoid arthritis. 2. Height is 5 feet 11 inches, weight is 184, BMI is 25. 3. Vital signs 127/69, pulse is 70, respirations 14, oxygen sat is 100. 4. Pain score is 3/10. 5. Denies dizziness, does not need help walking or standing, has not fallen in the last 3 months. 6. The patient is not on any blood thinners or does not take medicine for hypertension. 7. Opioid therapy is greater than 6 weeks; therefore, an opioid signed contract is on the chart. Risk assessment tool is low. Functional assessment is 26/70. 8. Recreational drug use, she denies. She is a former smoker and occasionally drinks alcohol. [address] [address] PAIN MANAGEMENT CONSULTATION Name: CARLINE STREETERELBERT Blandon Room #: REG GISEL Fuller#: [id number] Admission: 05/11/19 Attend Phys: Yana Anthony Discharge: Date of : 74 Report #: [id number] According to the prescription monitoring system, the patient is filling her hydrocodone appropriately as well as her Hysingla. She does also take alprazolam from another physician and she does safeguard those meds at all times, taking them appropriately. There is a recent drug screen on the chart that is appropriate as well. PHYSICAL EXAMINATION: GENERAL: This is a 49-year-old, alert and orientated female who appears her stated age, placing her current pain score at 3/10 today. HEENT: Normocephalic, atraumatic. Extraocular eye muscles are intact. Mucous membranes are moist. NECK: Without adenopathy or JVD. She does have scoliosis in her thoracic area, has some tenderness along the paraspinal muscles of her neck, into her musculature, into her shoulders that increase with certain activity and range of motion. MUSCULOSKELETAL: She has generalized tenderness in her thoracic region. She walks with a normal gait. Her upper and lower extremity strength judged to be 5/5 in all major muscle groups. ASSESSMENT: 1. 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 2. Scoliosis. 3. Management of high risk medications under terms of written opioid agreement. We reviewed the fact that opiate medications are being used to provide analgesia adequate to support activities of daily living, not attempting to achieve a specific pain score on the 0-10 Visual Analog Scale. The current opiate medications are providing sufficient analgesia to allow the patient to participate in activities of daily living. The patient is not exhibiting any aberrant behavior suggestive of drug diversion. The patient is not having any adverse reactions to medications. The patient is not suffering from daytime somnolence or mental acuity changes. The patient is managing opiate-induced constipation with appropriate kfos-old-vrkrsnw agents and dietary considerations. The patient was counseled on concern for caution with operating a motor vehicle while using opiate medications. PLAN: 1. We discussed treatment options with the patient today. The patient finds Hysingla very beneficial in controlling her pain, allowing her to participate in her activities of ADL and at work with good analgesic effect. We will refill those today of Hysingla 60 mg, #30 for today, 4-week and 8-week release as well as hydrocodone 10/325, #90. The patient does take these sparingly. 2. We did caution the patient of taking her Xanax and hydrocodone together. We encouraged her not to do that of the sedating effect of both of those medicines. [facility] [address] [place] [address] PAIN MANAGEMENT CONSULTATION Name: BARRY STREETER Room #: [facility] GISEL Fuller#: [id number] Admission: 05/11/19 Attend Phys: Yana Anthony Discharge: Date of : 74 Report #: [id number] She verbalizes understanding. She takes the alprazolam at night before bed and the Hysingla in the morning. 3. The patient will follow up in 3 months. The patient is seen today in collaboration with Dr. Prabhakar Meehan. <ELECTRONICALLY SIGNED> By: Yana Anthony 05/12/19 0831 [id number] Yana Anthony /nt
== END ==
LOC: PAIN 05-08 14:05
DX: M47.813 Spondylosis without myelopathy or radiculopathy, cervicothoracic region (principal); M41.83 Other forms of scoliosis, cervicothoracic region; M25.519 Pain in unspecified shoulder; Z79.891 Long term (current) use of opiate analgesic

== ENCOUNTER → 2019-06-25 | Outpatient (CLI) | payer BC ==
[~2019-06-25] VITALS: Ht 180.3 cm; Wt 83.0 kg
[~2019-06-25] MED LIST changes: +HYDROMORPHONE E12 MG PO
[2019-06-25 12:36] VITALS: BP 110/76
--- NOTE | 2019-06-26 07:19 | HPC ---
[facility] [address] [place] [address] PAIN MANAGEMENT CONSULTATION Name: BARRY STREETER Jamia Room #: REG GISEL Fuller#: [id number] Admission: 06/25/19 Attend Phys: Yana Anthony Discharge: Date of : 74 Report #: [id number] THIS REPORT FOR: //name// CC: Yana Borden MD DATE OF SERVICE: 06/25/2019 CHIEF COMPLAINT: Chronic neck pain and shoulder pain. HISTORY OF PRESENT ILLNESS: As you know, this is a very pleasant 49-year-old female. She returns today to the clinic to discuss possible change in her opioid medications. We recently received a letter from her insurance company stating they will no longer prescribe her Hysingla that she takes for her chronic ongoing neck and bilateral shoulder pain. She has been on Hysingla 60 mg for greater than 4 years. She has been able to function quite well on this medication with limited side effects. She is here to discuss what alternatives she may use as a treatment option since her insurance company will no longer cover this medication. She does have about 2 weeks left of her Hysingla left in her possession. We know that she will need to have a prior authorization and have her pharmacy order new medication. So, she is here to discuss these options. ALLERGIES: No known drug allergies. CURRENT LIST OF MEDICATIONS: Hysingla 60 mg daily, hydrocodone 10/325 one daily, Macrodantin p.r.n., ibuprofen as needed, valacyclovir, vitamin C, Xanax 0.5 at bedtime p.r.n. and Flonase. PQRS: 1. She denies any history of osteoarthritis or rheumatoid arthritis. 2. Height is 5 feet 11 inches, weight is 183, BMI is 25. 3. Vital signs 110/76, pulse is 74, respirations 14, oxygen sat is 99. 4. Pain score is 3/10. 5. Denies dizziness, does not need help walking or standing, has not fallen in the last 3 months. 6. The patient is not on any blood thinners or medicine for hypertension. 7. Opioid therapy is greater than 6 weeks; therefore, an opioid signed contract is on the chart. Risk assessment is low. Functional assessment is 26/70. 8. Recreational drug use, she denies. She is a former smoker and occasionally drinks alcohol. According to the prescription monitoring system, the patient is due to fill her medications in about 2 weeks' time. Her current morphine [place]Eq a [place] 70[place] [address] PAIN MANAGEMENT CONSULTATION Name: BARRY STREETER Room #: REG GISEL Fuller#: [id number] Admission: 06/25/19 Attend Phys: Yana Anthony Discharge: Date of : 74 Report #: [id number] PHYSICAL EXAMINATION: GENERAL: This is an alert and orientated 49-year-old who appears her stated age, placing her current pain score at 4/10. HEENT: Normocephalic, atraumatic. Extraocular eye muscles are intact. Mucous membranes are moist. NECK: Without adenopathy or JVD. She has tenderness along her paraspinal muscles in her neck, radiates into her shoulders, worse with certain range of motion and increases with activity. She does have scoliosis in her thoracic area. MUSCULOSKELETAL: Generalized tenderness in her thoracic region. Walks with a normal gait. Her upper and lower extremity strength judged to be 5/5 in all major muscle groups. ASSESSMENT: 1. Chronic intractable upper back pain with spondylosis of the cervical spine and thoracic spine. 2. Scoliosis. 3. Management of high risk medications under terms of written opioid agreement. We reviewed the fact that opiate medications are being used to provide analgesia adequate to support activities of daily living, not attempting to achieve a specific pain score on the 0-10 Visual Analog Scale. The current opiate medications are providing sufficient analgesia to allow the patient to participate in activities of daily living. The patient is not exhibiting any aberrant behavior suggestive of drug diversion. The patient is not having any adverse reactions to medications. The patient is not suffering from daytime somnolence or mental acuity changes. The patient is managing opiate-induced constipation with appropriate cshk-zko-sxcnwok agents and dietary considerations. The patient was counseled on concern for caution with operating a motor vehicle while using opiate medications. I reviewed with the patient today their responsibilities to safeguard prescription medications, reviewed their responsibility to utilize medications only as prescribed by the physician. They are to seek and receive pain medications only from 1 physician group ( [facility]). They are to use 1 pharmacy and keep the clinic informed if they change pharmacies. Their responsibilities include making followup visits in a timely fashion and to avoid abrupt discontinuation of medication usage. Their responsibilities further include bringing their medications (bottles from the pharmacy with residual pills) to the visit for possible confirmation of pill counts and the patient understands it is their responsibility to submit to random drug screens to ensure both that the medications prescribed are present, and that no other controlled substances are present. All prescriptions provided today were generated electronically. [address] [address] PAIN MANAGEMENT CONSULTATION Name: BARRY STREETER Room #: REG GISEL Fuller#: [id number] Admission: 06/25/19 Attend Phys: Yana Anthony Discharge: Date of : 74 Report #: [id number] PLAN: 1. We discussed treatment options with the patient today. According to the letter from the patient's insurance company, they will stop having Hysingla on their formulary. They wish for the patient to be on fentanyl patch, hydromorphone extended release, methadone, morphine extended release; oxycodone XR, Embeda, Nucynta ER or Xtampza. The patient has been stable on Hysingla for a several years and does like the once daily dosing of this medication. We believe we will trial first hydromorphone extended release starting her at 12 mg per day. This will be a decrease in her overall morphine mEq to 48 daily from 60 MME of her Hysingla. The patient has been instructed to take this to the pharmacy today since it may need a prior authorization and they may need to order this medicine. She still has Hysingla at home for about 2 weeks. 2. The patient instructed once she does have the Exalgo/hydromorphone ER in her position, to stop taking Hysingla on one day and continue the next day with her Exalgo. She may continue her hydrocodone p.r.n. as needed. The patient verbalizes understanding. 3. The patient will call for an appointment to be seen in July after she has been on the medication for 1 month. The patient is seen today in collaboration with Dr. Juan Ramon Borden who did see the patient as well. Scripts were electronically sent to her [facility] for 30 pills of hydromorphone ER 12 mg. <ELECTRONICALLY SIGNED> By: Yana Anthony 06/26/19 0719 [id number] Yana Anthony /nt
== END ==
LOC: PAIN 06:51
DX: M47.812 Spondylosis without myelopathy or radiculopathy, cervical region (principal); M41.80 Other forms of scoliosis, site unspecified; Z79.891 Long term (current) use of opiate analgesic

== ENCOUNTER → 2019-07-30 | Outpatient (CLI) | payer BC ==
[~2019-07-30] VITALS: Ht 180.3 cm; Wt 85.5 kg
[2019-07-30 08:36] VITALS: BP 106/73
--- NOTE | 2019-07-30 08:52 | NUR ---
Pain Clinic Assessment: 1. History of Osteoarthritis: SPINE PER PT History of Rheumatoid Arthritis: DENIES 2. Height: 5 ft. 11 in. 180.3 cm. Weight: 188.6 lb. oz. 85.548 kg. Patient's BMI: 26.3 3. Vital Signs: BP: 106/73 Pulse: 70 Resp: 14 Temp: 02 Sat: 100 ECG Mon: 4. Pain Intensity: 3 5. Fall Risk: Dizziness: N Needs help standing or walking: N Fallen in the last 3 months: N Fall risk comments: 6. Patient on Blood Thinner: None 7. History of Hypertension: N 8. Opioid Therapy greater than 6 weeks: Y Opiate Contract Signed: 08/29/17 9. Risk Assessment Tool Provided: LOW RISK 2 10. Functional Assessment Tool: 11. Recreational Drug Use: Never Drug Type: Tobacco Use: Former Smoker Tobacco Type: Cigarettes Amount or Packs/day: 1 ppd How Many Years: 20 Alcohol Use: Yes Frequency: Weekly Quant: 2-3/week
--- NOTE | 2019-07-30 13:07 | HPC ---
[facility] [address] [place] [address] PAIN MANAGEMENT CONSULTATION Name: BARRY STREETER Room #: REG GISEL Fuller#: [id number] Admission: 07/30/19 Attend Phys: Yana Anthony Discharge: Date of : 74 Report #: [id number] THIS REPORT FOR: cc: Glenroy Rasmussen Michael J. DO Hocker,Yana COMER ~ THIS REPORT FOR: //name// DATE OF SERVICE: 07/30/2019 CHIEF COMPLAINT: Chronic neck pain and shoulder pain. HISTORY OF PRESENT ILLNESS: This is a very pleasant 49-year-old female, who returns to the pain clinic today so we can evaluate her on her new opioid medication. In June, we needed to change her long-acting opioid due to insurance requirements. She had been stable on Hysingla 60 mg for greater than 4 years. They were not covering that medication, so we switched her to Exalgo 12 mg tablets. This was a slight decrease in her daily morphine mEq. The patient reports today a pain score of 3/10. She states that the first few days, she had slight dizzy feeling after her medications, but by the third day that dizziness had subsided and she feels that she is adequately being able to control her pain in her neck, bilateral shoulders and occasionally in her lower back. It is a dull aching pain, rating 3/10 today. She states that sitting for prolonged periods of time or standing for prolonged periods of time does increase her pain; that the medications are beneficial with no problems of side effects of constipation or daytime sleepiness; and as I stated above, the dizziness has subsided. Today, she would like refills of this medication as well as her hydrocodone that she takes 1 tablet a day for breakthrough pain. ALLERGIES: No known drug allergies. CURRENT LIST OF MEDICATIONS: Exalgo 12 mg daily, hydrocodone 10/325 one daily, Macrodantin, ibuprofen p.r.n., valacyclovir, vitamin C, Xanax and Flonase. PQRS: 1. She has osteoarthritis in her spine. Denies any rheumatoid arthritis. 2. Height is 5 feet 11 inches, weight is 188, BMI is 26. 3. Vital signs; blood pressure 106/73, pulse is 70, respirations 14, oxygen sat is 100. 4. Pain score is 3/10. 5. Denies dizziness, does not need help walking or standing, has not fallen in the last 3 months. 6. The patient is not on any blood thinners or medicines for hypertension. 7. Opioid therapy is greater than 6 weeks; therefore, an opioid signed contract is on the chart. Risk assessment tool is low. Functional assessment is . [address] [address] PAIN MANAGEMENT CONSULTATION Name: BARRY STREETER Room #: REG Ravin Russell.#: [id number] Admission: 07/30/19 Attend Phys: Yana Anthony Discharge: Date of : 74 Report #: [id number] 8. Recreational drug use, she denies. She is a former smoker. Occasionally drinks alcoholic beverages 2 to 3 times a week. According to the prescription monitoring system, the patient is filling appropriately for her medications; she is due to fill those early next week. According to the CDC guidelines, her morphine mEq per day is 48. PHYSICAL EXAMINATION: GENERAL: This is an alert and orientated 49-year-old female who appears her stated age, placing her current pain score at 3/10. HEENT: Normocephalic, atraumatic. Extraocular eye muscles are intact. Mucous membranes are moist. NECK: Without adenopathy or JVD. She has tenderness in the paraspinal muscles of her neck. Pain radiates into her bilateral shoulders, but upper extremity strength judged to be 5/5 in all major muscle groups. She does have scoliosis in her thoracic area. MUSCULOSKELETAL: She has tenderness in the thoracic region. She walks with a normal gait. Lower extremity strength judged to be 5/5 in all major muscle groups. ASSESSMENT: 1. Chronic intractable upper back pain with spondylosis of the cervical spine and thoracic spine. 2. Scoliosis. 3. Management of high risk medications under terms of written opioid agreement. We reviewed the fact that opiate medications are being used to provide analgesia adequate to support activities of daily living, not attempting to achieve a specific pain score on the 0-10 Visual Analog Scale. The current opiate medications are providing sufficient analgesia to allow the patient to participate in activities of daily living. The patient is not exhibiting any aberrant behavior suggestive of drug diversion. The patient is not having any adverse reactions to medications. The patient is not suffering from daytime somnolence or mental acuity changes. The patient is managing opiate-induced constipation with appropriate gzjg-mrv-amitraq agents and dietary considerations. The patient was counseled on concern for caution with operating a motor vehicle while using opiate medications. PLAN: 1. We discussed treatment options with the patient today. The patient is doing well on the opioid rotation from Hysingla to Exalgo. She had a few days of dizziness feeling, but that has subsided. She feels that she is having adequate pain control with this medicine as compared to her Hysingla. We will refill her hydromorphone/Exalgo 12 mg tablets, #30 for today for an 8-week release, as well as her hydrocodone 10/325, #90. These will be sent electronically by Dr. Juan Ramon Borden to her pharmacy. [facility] [address] [place] [address] PAIN MANAGEMENT CONSULTATION Name: BARRY STREETER Room #: REG GISEL Fuller#: [id number] Admission: 07/30/19 Attend Phys: Yana Anthony Discharge: Date of : 74 Report #: [id number] 2. The patient will return in 3 months' time. The patient is seen today in collaboration with Dr. Juan Ramon Borden. <ELECTRONICALLY SIGNED> By: Yana Anthony 07/30/19 1307 [id number] Yana Anthony /nt
== END ==
LOC: PAIN 06:46
DX: M47.813 Spondylosis without myelopathy or radiculopathy, cervicothoracic region (principal); M41.80 Other forms of scoliosis, site unspecified; M25.511 Pain in right shoulder; M25.512 Pain in left shoulder; G89.29 Other chronic pain; Z79.899 Other long term (current) drug therapy

== ENCOUNTER → 2019-10-19 | Outpatient (CLI) | payer BC ==
[~2019-10-19] VITALS: Ht 180.3 cm; Wt 84.1 kg
[2019-10-19 10:26] VITALS: BP 114/59
--- NOTE | 2019-10-19 10:33 | NUR ---
Pain Clinic Assessment: 1. History of Osteoarthritis: SPINE PER PT History of Rheumatoid Arthritis: DENIES 2. Height: 5 ft. 11 in. 180.3 cm. Weight: 185.4 lb. oz. 84.097 kg. Patient's BMI: 25.9 3. Vital Signs: BP: 114/59 Pulse: 85 Resp: 16 Temp: 02 Sat: 100 ECG Mon: 4. Pain Intensity: 3 5. Fall Risk: Dizziness: N Needs help standing or walking: N Fallen in the last 3 months: N Fall risk comments: 6. Patient on Blood Thinner: None 7. History of Hypertension: N 8. Opioid Therapy greater than 6 weeks: Y Opiate Contract Signed: 08/29/17 9. Risk Assessment Tool Provided: LOW RISK 2 10. Functional Assessment Tool: 11. Recreational Drug Use: Never Drug Type: Tobacco Use: Former Smoker Tobacco Type: Cigarettes Amount or Packs/day: How Many Years: Alcohol Use: Yes Frequency: Monthly Quant:
--- NOTE | 2019-10-21 12:39 | HPC ---
[facility] [place] [address] PAIN MANAGEMENT CONSULTATION Name: BARRY STREETER Room #: REG GISEL Fuller#: [id number] Admission: 10/19/19 Attend Phys: Yana Anthony Discharge: Date of : 74 Report #: [id number] THIS REPORT FOR: cc: Glenroy Rasmussen Michael J. DO Hocker, Amanda CNS ~ CC: Juan Ramon Borden MD DATE OF SERVICE: 10/19/2019 CHIEF COMPLAINT: Chronic neck and shoulder pain. HISTORY OF PRESENT ILLNESS: This is a very pleasant 49-year-old female who returns to the pain clinic today for refill of her medications. Today, she is reporting a pain score of 3/10. She states that the hydromorphone extended release is not as effective in controlling her pain as the Hysingla was, so she understands that is the medicine she needs to continue due to insurance reasons. She states that her pain is slightly elevated with this medication and some days is requiring one and half of her hydrocodone breakthrough pain medicine where previously she could go days without taking her hydrocodone breakthrough medication. Today, her pain is located mostly in her shoulders, though she is complaining of neck pain and some occasional low back pain. She feels this may be attributed to sitting longer at a home desk as opposed to her desk at work that is more ergonomically correct. Her pain is an aching, dull pain. She feels that the medication as well as massage and stretching have been beneficial. She denies any problems with constipation or daytime sleepiness as a result of her medications. ALLERGIES: No known drug allergies. MEDICATIONS: Hydromorphone ER 12 mg tablets daily, Macrodantin, ibuprofen, valacyclovir, vitamin C, alprazolam and Flonase. PQRS: 1. She has arthritic changes in her spine. Denies any rheumatoid arthritis. 2. Height is 5 feet 11 inches, weight is 185, BMI is 25. 3. Vital signs: 114/59, pulse is 85, respirations 16, oxygen sat is 100. 4. Pain score is 3/10. 5. Denies dizziness, does not need help walking and standing. Has not fallen in the last 3 months. 6. The patient is not on any blood thinners and does not take medicine for hypertension. Her opioid therapy is greater than 6 weeks, therefore an opioid signed contract is on the chart. Risk assessment tool is low. Functional assessment is . 7. Recreational drug use, she denies. She is a former smoker and does occasionally drink alcohol. [address] [address] PAIN MANAGEMENT CONSULTATION Name: BARRY STREETER Jamia Room #: REG [facility] Jonny#: [id number] Admission: 10/19/19 Attend Phys: Yana Anthony Discharge: Date of : 74 Report #: [id number] According to the prescription monitoring system, her medication is due early next week for refill. Her morphine mEq is 48 according to the CDC guidelines. There is a recent drug screen on the chart that is appropriate as well. PHYSICAL EXAMINATION: GENERAL: This is alert and orientated, very pleasant 49-year-old female who appears her stated age, placing her current pain score. HEENT: Normocephalic, atraumatic. Extraocular eye muscles are intact. Mucous membranes are moist. NECK: Without adenopathy or JVD. MUSCULOSKELETAL: She has some tenderness in her paraspinal musculature today that radiates into her bilateral shoulders. Her upper extremity strength is equal at 5/5. She has scoliosis in her thoracic spine. She has tenderness in this region. She walks with a normal gait. Her lower extremity strength judged to be 5/5 in all major muscle groups. ASSESSMENT: 1. Chronic intractable upper back pain with spondylosis of the cervical spine and thoracic spines. 2. Scoliosis. 3. Management of high risk medications under terms of written opioid agreement. We reviewed the fact that opiate medications are being used to provide analgesia adequate to support activities of daily living, not attempting to achieve a specific pain score on the 0-10 Visual Analog Scale. The current opiate medications are providing sufficient analgesia to allow the patient to participate in activities of daily living. The patient is not exhibiting any aberrant behavior suggestive of drug diversion. The patient is not having any adverse reactions to medications. The patient is not suffering from daytime somnolence or mental acuity changes. The patient is managing opiate-induced constipation with appropriate dads-alp-crjromy agents and dietary considerations. The patient was counseled on concern for caution with operating a motor vehicle while using opiate medications. A physical exam was performed and the patient's functional status was evaluated. All patients with back pain were advised against the bed rest greater than 4 days and were advised to return to normal activities. Pain score assessment was noted and the treatment plan was reviewed with the patient. All current medications, both prescribed and OTC were reviewed and reconciled on the electronic medical record. Tobacco screening was accomplished and smoking cessation was advised when indicated. BMI was noted and diet/exercise modification was recommended for all patients following outside normal parameters. I reviewed with the patient today their responsibilities to [facility] [address] [address] PAIN MANAGEMENT CONSULTATION Name: BARRY STREETER Room #: REG [facility] Jonny#: [id number] Admission: 10/19/19 Attend Phys: Yana Anthony Discharge: Date of : 74 Report #: [id number] prescription medications, reviewed their responsibility to utilize medications only as prescribed by the physician. They are to seek and receive pain medications only from 1 physician group ( [facility]). They are to use 1 pharmacy and keep the clinic informed if they change pharmacies. Their responsibilities include making followup visits in a timely fashion and to avoid abrupt discontinuation of medication usage. Their responsibilities further include bringing their medications (bottles from the pharmacy with residual pills) to the visit for possible confirmation of pill counts and the patient understands it is their responsibility to submit to random drug screens to ensure both that the medications prescribed are present, and that no other controlled substances are present. All prescriptions provided today were generated electronically. PLAN: 1. We discussed treatment options with the patient today. The patient finds Exalgo not as beneficial as the Hysingla, but understands that she needs to stay on this medicine due to insurance purposes. She is requiring one and half tablets of hydrocodone breakthrough pain on some days, but feels like she will try and get by with her current 90 pills that we have been prescribing her for 3 months of her breakthrough. Today, we will refill her Exalgo 12 mg, #30, for today, 4-week and 8-week release as well as 90 of her hydrocodone 10/325 These will be sent via electronic prescription by Dr. Juan Ramon Borden. 2. I encouraged the patient to call if she is having difficulty with limiting her hydrocodone breakthrough pain pills to 1 a day. The patient thinks that after the COVID virus where she is able to get back to her normal desk, this may improve normal working environment. Hopefully, her pain will subside slightly. 3. The patient is seen in collaboration with Dr. Juan Ramon Borden today, who did see the patient as well. <ELECTRONICALLY SIGNED> By: Yana Anthony 10/21/19 [id number] Yana Anthony /nt
== END ==
LOC: PAIN 06:53
DX: M54.2 Cervicalgia (principal); M25.519 Pain in unspecified shoulder; G89.29 Other chronic pain; M41.9 Scoliosis, unspecified; F11.20 Opioid dependence, uncomplicated; Z79.899 Other long term (current) drug therapy; Z88.8 Allergy status to other drugs, medicaments and biological substances

== ENCOUNTER → 2020-01-14 | Outpatient (CLI) | payer BC ==
--- NOTE | 2020-01-15 07:51 | HPC ---
[facility] [place] [address] PAIN MANAGEMENT CONSULTATION Name: BARRY STREETER Room #: REG GISEL Fuller#: [id number] Admission: 01/14/20 Attend Phys: Yana Anthony Discharge: Date of : 74 Report #: [id number] THIS REPORT FOR: cc: Glenroy Rasmussen Michael J. DO Hocker, Amanda CNS ~ CC: Juan Ramon Borden MD DATE OF SERVICE: 01/14/2020 This is a TeleMed appointment that the patient has consented for, for an audiovisual during FaceTime from 9:51-10:08 due to the COVID outbreak and she has tested COVID positive, so she is at home on quarantine. CHIEF COMPLAINT: Chronic neck and shoulder pain. HISTORY OF PRESENT ILLNESS: This is a very pleasant 49-year-old who I am speaking with via audiovisual FaceTime for a TeleMed appointment. She today states her pain score is a 2-3. She has been doing quite well with her pain control with her current pain regimen of her hydromorphone extended release and an occasional hydrocodone. She does have pain that is located in her shoulders and neck. It is a dull aching pain, worse with sitting at her desk. She is working from home and has her office set up, which I do see today in our teleconference. She has an ergonomic chair and monitors elevated to help decrease her pain in her neck. The patient has tested positive for the COVID virus around the 25 of December. She experienced a sore throat and tiredness. She did have a headache for a few days and some decreased mental. She feels that she was having difficulty concentrating or remembering certain words. She states that has continued, but the rest of the symptoms have resolved. Her and son were positive as well. She was able to stay away from her daughter who has not tested positive in the house. 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 Today, she is in need of her opioid medications refilled. ALLERGIES: No known drug allergies. CURRENT LIST OF MEDICATIONS: Hydromorphone ER 12 mg tablets, Macrodantin, ibuprofen, valacyclovir, vitamin C, alprazolam and Flonase. PQRS: 1. She has arthritic changes in her spine. Denies any rheumatoid arthritis. 2. Height, weight and vital signs were deferred today due to a TeleMed appointment. 3. Pain score is 2-3. [address] [address] PAIN MANAGEMENT CONSULTATION Name: BARRY STREETER Room #: REG [facility]#: [id number] Admission: 01/14/20 Attend Phys: Yana Anthony Discharge: Date of : 74 Report #: [id number] 4. The patient denies dizziness, does not need help walking or standing, has not fallen in the last 3 months. 5. The patient is not on any blood thinners or medicine for hypertension. 6. Her opioid therapy is greater than 6 weeks; therefore, we have her on an opioid signed contract. Her risk assessment is low. Functional assessment . 7. Recreational drug use, she denies. She is a former smoker and does drink alcohol. According to the prescription monitoring system, the patient is due to fill her medications later this week, filling them in a timely fashion. Her morphine mEq according to the CDC guidelines is 49.6. There is a recent drug screen on the chart that is appropriate for her medications as well and we will recheck her again at her next appointment. PHYSICAL EXAMINATION: Deferred due to a TeleMed appointment, though we did do a review of systems. GENERAL: She is alert and orientated 49-year-old female. She is placing her current pain score at 2-3 today. HEENT: Normocephalic, atraumatic. Extraocular eye muscles are intact. She is not wearing a mask due to her being in her own office alone today. MUSCULOSKELETAL: She has tenderness in the paraspinal musculature that radiates into her shoulders. She has scoliosis of the thoracic spine. She is able to move her neck with minimal increase in pain. Her upper extremity strength judged to be 5/5 in the video conference today. ASSESSMENT: 1. Chronic intractable upper back pain with spondylosis of the cervical spine and thoracic spine. 2. Scoliosis. 3. Management of high risk medications under terms of written opioid agreement. We reviewed the fact that opiate medications are being used to provide analgesia adequate to support activities of daily living, not attempting to achieve a specific pain score on the 0-10 Visual Analog Scale. The current opiate medications are providing sufficient analgesia to allow the patient to participate in activities of daily living. The patient is not exhibiting any aberrant behavior suggestive of drug diversion. The patient is not having any adverse reactions to medications. The patient is not suffering from daytime somnolence or mental acuity changes. The patient is managing opiate-induced constipation with appropriate oask-saf-vzxvltq agents and dietary considerations. The patient was counseled on concern for caution with operating a motor vehicle while using opiate medications. A physical exam was performed and the patient's functional status was evaluated. All patients with back pain were advised against the bed rest greater than [address] [address] PAIN MANAGEMENT CONSULTATION Name: BARRY STREETER Room #: REG [facility]#: [id number] Admission: 01/14/20 Attend Phys: Yana Anthony Discharge: Date of : 74 Report #: [id number] days and were advised to return to normal activities. Pain score assessment was noted and the treatment plan was reviewed with the patient. All current medications, both prescribed and OTC were reviewed and reconciled on the electronic medical record. Tobacco screening was accomplished and smoking cessation was advised when indicated. BMI was noted and diet/exercise modification was recommended for all patients following outside normal parameters. I reviewed with the patient today their responsibilities to safeguard prescription medications, reviewed their responsibility to utilize medications only as prescribed by the physician. They are to seek and receive pain medications only from 1 physician group ( [facility]). They are to use 1 pharmacy and keep the clinic informed if they change pharmacies. Their responsibilities include making followup visits in a timely fashion and to avoid abrupt discontinuation of medication usage. Their responsibilities further include bringing their medications (bottles from the pharmacy with residual pills) to the visit for possible confirmation of pill counts and the patient understands it is their responsibility to submit to random drug screens to ensure both that the medications prescribed are present, and that no other controlled substances are present. All prescriptions provided today were generated electronically. PLAN: 1. We discussed treatment options with the patient today. The patient finds her hydromorphone very beneficial in controlling her pain. In the past, she has been on Hysingla and was stable, but we did need to change that due to insurance requirements. Since that time, she has been well controlled on her current dose. We will need to preauthorize this medication again due to her insurance requirements of every 6 months. The patient does have random drug screens and we do check the prescription monitoring system at every visit and she does have opioid signed contract. The patient does find this medication is very beneficial allowing her to be as active as she is able with minimal side effects. We will have Dr. Juan Ramon Borden send her medications to her pharmacy today and we will obtain the prior authorization in the next week, so she will be able to fill this in a timely fashion at the end of this month. 2. Scripts sent for her hydromorphone ER 12 mg, #30 for today,4 week, an 8-week release and hydrocodone 10/325 a half to one tablet #90 script sent. 3. The patient seen via the audio television teleconference today for her appointment under collaboration with Dr. Juan Ramon Borden. <ELECTRONICALLY SIGNED> By: Yana Anthony 01/15/20 [id number] Yana Anthony /irma
== END ==
LOC: TELEPC 07:01
PROVIDERS: ATTEND Clinical Nurse Specialist Adult Health
DX: M25.519 Pain in unspecified shoulder (principal); M47.812 Spondylosis without myelopathy or radiculopathy, cervical region; M47.814 Spondylosis without myelopathy or radiculopathy, thoracic region; M41.9 Scoliosis, unspecified; F11.20 Opioid dependence, uncomplicated; F10.10 Alcohol abuse, uncomplicated; Z79.899 Other long term (current) drug therapy; Z87.891 Personal history of nicotine dependence

== ENCOUNTER → 2020-04-04 | Outpatient (CLI) | payer BC ==
[~2020-04-04] VITALS: Ht 180.3 cm; Wt 85.5 kg
[2020-04-04 09:01] VITALS: BP 138/69
--- NOTE | 2020-04-04 09:15 | NUR ---
Pain Clinic Assessment: 1. History of Osteoarthritis: SPINE PER PT History of Rheumatoid Arthritis: DENIES 2. Height: 5 ft. 11 in. 180.3 cm. Weight: 188.6 lb. oz. 85.548 kg. Patient's BMI: 26.3 3. Vital Signs: BP: 138/69 Pulse: 82 Resp: 14 Temp: 02 Sat: 100 ECG Mon: 4. Pain Intensity: 2-3 5. Fall Risk: Dizziness: N Needs help standing or walking: N Fallen in the last 3 months: N Fall risk comments: 6. Patient on Blood Thinner: None 7. History of Hypertension: N 8. Opioid Therapy greater than 6 weeks: Y Opiate Contract Signed: 08/29/17 9. Risk Assessment Tool Provided: LOW RISK 2 10. Functional Assessment Tool: 11. Recreational Drug Use: Never Drug Type: Tobacco Use: Former Smoker Tobacco Type: Amount or Packs/day: How Many Years: Alcohol Use: Yes Frequency: Quant:
--- NOTE | 2020-04-05 07:50 | HPC ---
[facility] [address] [place] [address] PAIN MANAGEMENT CONSULTATION Name: BARRY STREETER Room #: REG GISEL Russell.#: [id number] Admission: 04/04/20 Attend Phys: Yana Anthony Discharge: Date of : 74 Report #: [id number] CC: Yana Borden MD DATE OF SERVICE: 04/04/2020 CHIEF COMPLAINT: Chronic neck and shoulder pain. HISTORY OF PRESENT ILLNESS: This is a very pleasant 50-year-old female who returns to the clinic today for refill of her medications. Her last visit was a telemedicine due to her being diagnosed with COVID. She reports today that it took her about a month to finally start feeling better. Multiple family members were diagnosed as well. She reports she is continuing to work at home during this pandemic. She does go to the office very sporadically for a few hours. Today, she is reporting her pain score at 2-3, finding it very well controlled by her hydromorphone. She does occasionally take a breakthrough hydrocodone when her shoulders or mid back becomes problematic. She reports that her pain is a sharp, dull, aching pain, worse with prolonged sitting or standing, massage has been beneficial and she recently had her first massage since the COVID outbreak. She denies problems with constipation or daytime somnolence as a result of her medications. ALLERGIES: No known drug allergies. CURRENT LIST OF MEDICATIONS: Hydromorphone ER 12 mg tablets daily, hydrocodone p.r.n., Macrodantin, ibuprofen, valacyclovir, vitamin C, alprazolam and Flonase. PQRS: 1. She has osteoarthritic changes in her spine. Denies rheumatoid arthritis. 2. Height is 5 feet 11 inches, weight is 188, BMI is 26. Vital signs 138/69, pulse is 82, respirations 14, oxygen sat is 100, pain score is 2-3. Fall risk; denies dizziness, does not need help walking or standing, has not fallen in the last 3 months. The patient is not on any blood thinners or medicine for hypertension. Opioid therapy is greater than 6 weeks; therefore, an opioid signed contract is on the chart. Risk assessment is low. Functional assessment . Recreational drug use, she denies. She is a former smoker and does not drink alcohol. According to the prescription monitoring system, the patient is filling appropriately in a timely fashion. She is due to fill her medications next week. Her morphine mEq according to the CDC guidelines is 50 MME. PHYSICAL EXAMINATION: GENERAL: This is alert and orientated, well-developed, well-nourished 50-year-old female who appears her stated age, placing her current pain score at 2-3. HEENT: Normocephalic, atraumatic. Extraocular eye muscles are intact. Mucous membranes are moist. She is wearing a mask. NECK: Without adenopathy or JVD. MUSCULOSKELETAL: Upper extremity strength is equal and symmetrical. She has scoliosis of the thoracic spine with no kyphosis. She has tenderness in her thoracic region. She has tenderness in the paraspinal musculature of her neck. She has a normal gait. Her lower extremity strength is symmetrical at 5/5. ASSESSMENT: 1. Chronic intractable pain with spondylosis of the cervical spine and thoracic spine. 2. Scoliosis. 3. Management of high risk medications under terms of written opioid agreement. We reviewed the fact that opiate medications are being used to provide analgesia adequate to support activities of daily living, not attempting to achieve a specific pain score on the 0-10 Visual Analog Scale. The current opiate medications are providing sufficient analgesia to allow the patient to participate in activities of daily living. The patient is not exhibiting any aberrant behavior suggestive of drug diversion. The patient is not having any adverse reactions to medications. The patient is not suffering from daytime somnolence or mental acuity changes. The patient is managing opiate-induced constipation with appropriate ccrx-rlw-hxstoqn agents and dietary considerations. The patient was counseled on concern for caution with operating a motor vehicle while using opiate medications. A physical exam was performed and the patient's functional status was evaluated. All patients with back pain were advised against the bed rest greater than 4 days and were advised to return to normal activities. Pain score assessment was noted and the treatment plan was reviewed with the patient. All current medications, both prescribed and OTC were reviewed and reconciled on the electronic medical record. Tobacco screening was accomplished and smoking cessation was advised when indicated. BMI was noted and diet/exercise modification was recommended for all patients following outside normal parameters. I reviewed with the patient today their responsibilities to safeguard prescription medications, reviewed their responsibility to utilize medications only as prescribed by the physician. They are to seek and receive pain medications only from 1 physician group ( [facility]). They are to use 1 pharmacy and keep the clinic informed if they change pharmacies. Their responsibilities include making followup visits in a timely fashion and to avoid abrupt discontinuation of medication usage. Their responsibilities further include bringing their medications (bottles from the pharmacy with residual pills) to the visit for possible confirmation of pill counts and the patient understands it is their responsibility to submit to random drug screens to ensure both that the medications prescribed are present, and that no other controlled substances are present. All prescriptions provided today were generated electronically. PLAN: 1. We discussed treatment options with the patient today. The patient finds her medications very beneficial allowing her to be as active as she would like. She does take alprazolam that she is given by her primary, has been stable on this medication for quite some time. She does report that she had increased anxiety during her COVID diagnosis. She was worried that she would be given it to other people, especially other family members that were diagnosed. She does state that her anxiety has calmed back down now that she is feeling healthy again. 2. We will have Dr. Juan Ramon Borden send her hydromorphone ER 12 mg tablets, #30 for today, 4-week and 8-week release to her pharmacy as well as hydrocodone 10/325, #90. This prescription usually lasts for the total of 3 months. 3. The patient will return in 3 months. The patient is seen in collaboration with Dr. Borden. <ELECTRONICALLY SIGNED> By: Yana Anthony 04/05/20 [id number] [id number] Yana Anthony /irma
== END ==
LOC: PAIN 03-17 06:53
PROVIDERS: ATTEND Clinical Nurse Specialist Adult Health
DX: M47.812 Spondylosis without myelopathy or radiculopathy, cervical region (principal); M41.80 Other forms of scoliosis, site unspecified; F11.20 Opioid dependence, uncomplicated; Z79.899 Other long term (current) drug therapy

== ENCOUNTER → 2020-07-11 | Outpatient (CLI) | payer BC, OTHER ==
[~2020-07-11] VITALS: Ht 180.3 cm; Wt 89.1 kg
[2020-07-11 09:03] VITALS: BP 116/71
--- NOTE | 2020-07-11 09:13 | NUR ---
Pain Clinic Assessment: 1. History of Osteoarthritis: SPINE PER PT History of Rheumatoid Arthritis: DENIES 2. Height: 5 ft. 11 in. 180.3 cm. Weight: 196.4 lb. oz. 89.087 kg. Patient's BMI: 27.4 3. Vital Signs: BP: 116/71 Pulse: 89 Resp: 14 Temp: 02 Sat: 100 ECG Mon: 4. Pain Intensity: 1-2-BETTER THIS WEEK 5. Fall Risk: Dizziness: N Needs help standing or walking: N Fallen in the last 3 months: N Fall risk comments: 6. Patient on Blood Thinner: None 7. History of Hypertension: N 8. Opioid Therapy greater than 6 weeks: Y Opiate Contract Signed: 08/29/17 9. Risk Assessment Tool Provided: LOW RISK 2 10. Functional Assessment Tool: 11. Recreational Drug Use: Never Drug Type: Tobacco Use: Former Smoker Tobacco Type: Amount or Packs/day: How Many Years: Alcohol Use: Yes Frequency: Quant:
== END ==
LOC: PAIN 06:48
PROVIDERS: ATTEND Clinical Nurse Specialist Adult Health
DX: M41.82 Other forms of scoliosis, cervical region (principal); M41.84 Other forms of scoliosis, thoracic region; F11.20 Opioid dependence, uncomplicated; Z79.899 Other long term (current) drug therapy

== ENCOUNTER → 2020-09-29 | Outpatient (CLI) | payer OTHER ==
[~2020-09-29] VITALS: Ht 180.3 cm; Wt 87.6 kg
[2020-09-29 08:54] VITALS: BP 111/73
--- NOTE | 2020-09-29 09:02 | NUR ---
Pain Clinic Assessment: 1. History of Osteoarthritis: SPINE History of Rheumatoid Arthritis: DENIES 2. Height: 5 ft. 11 in. 180.3 cm. Weight: 193.2 lb. oz. 87.635 kg. Patient's BMI: 27.0 3. Vital Signs: BP: 111/73 Pulse: 89 Resp: 16 Temp: 02 Sat: 100 ECG Mon: 4. Pain Intensity: 2 5. Fall Risk: Dizziness: N Needs help standing or walking: N Fallen in the last 3 months: N Fall risk comments: 6. Patient on Blood Thinner: None 7. History of Hypertension: N 8. Opioid Therapy greater than 6 weeks: Y Opiate Contract Signed: 08/29/17 9. Risk Assessment Tool Provided: LOW RISK 2 10. Functional Assessment Tool: 11. Recreational Drug Use: Never Drug Type: Tobacco Use: Former Smoker Tobacco Type: Amount or Packs/day: How Many Years: Alcohol Use: Yes Frequency: Weekly Quant: 2
== END ==
LOC: PAIN 06:44
PROVIDERS: ATTEND Anesthesiology Pain Medicine
DX: M47.812 Spondylosis without myelopathy or radiculopathy, cervical region (principal); M41.82 Other forms of scoliosis, cervical region; F11.20 Opioid dependence, uncomplicated

== ENCOUNTER → 2020-12-22 | Outpatient (CLI) | payer OTHER ==
[~2020-12-22] VITALS: Ht 180.3 cm; Wt 83.7 kg
[2020-12-22 09:00] VITALS: BP 132/80
--- NOTE | 2020-12-22 09:06 | NUR ---
Pain Clinic Assessment: 1. History of Osteoarthritis: SPINE History of Rheumatoid Arthritis: DENIES 2. Height: 5 ft. 11 in. 180.3 cm. Weight: 184.6 lb. oz. 83.734 kg. Patient's BMI: 25.8 3. Vital Signs: BP: 132/80 Pulse: 82 Resp: 14 Temp: 02 Sat: 98 ECG Mon: 4. Pain Intensity: 4 5. Fall Risk: Dizziness: N Needs help standing or walking: N Fallen in the last 3 months: Y Fall risk comments: 6. Patient on Blood Thinner: None 7. History of Hypertension: N 8. Opioid Therapy greater than 6 weeks: Y Opiate Contract Signed: 08/29/17 9. Risk Assessment Tool Provided: LOW RISK 2 10. Functional Assessment Tool: 11. Recreational Drug Use: Never Drug Type: Tobacco Use: Former Smoker Tobacco Type: Amount or Packs/day: How Many Years: Alcohol Use: Yes Frequency: Weekly Quant: 2-3
== END ==
LOC: PAIN 06:54
PROVIDERS: ATTEND Anesthesiology Pain Medicine
DX: M47.813 Spondylosis without myelopathy or radiculopathy, cervicothoracic region (principal); G89.4 Chronic pain syndrome; Z79.891 Long term (current) use of opiate analgesic; Z79.899 Other long term (current) drug therapy; Z72.89 Other problems related to lifestyle; Z87.891 Personal history of nicotine dependence

== ENCOUNTER → 2021-03-13 | Outpatient (CLI) | payer OTHER ==
[~2021-03-13] VITALS: Ht 180.3 cm; Wt 84.2 kg
[2021-03-13 10:04] VITALS: BP 131/64
--- NOTE | 2021-03-13 10:14 | NUR ---
Pain Clinic Assessment: 1. History of Osteoarthritis: SPINE History of Rheumatoid Arthritis: DENIES 2. Height: 5 ft. 11 in. 180.3 cm. Weight: 185.6 lb. oz. 84.188 kg. Patient's BMI: 25.9 3. Vital Signs: BP: 131/64 Pulse: 72 Resp: 14 Temp: 02 Sat: 100 ECG Mon: 4. Pain Intensity: 2 5. Fall Risk: Dizziness: N Needs help standing or walking: N Fallen in the last 3 months: N Fall risk comments: 6. Patient on Blood Thinner: None 7. History of Hypertension: N 8. Opioid Therapy greater than 6 weeks: Y Opiate Contract Signed: 08/29/17 9. Risk Assessment Tool Provided: LOW RISK 2 10. Functional Assessment Tool: 11. Recreational Drug Use: Never Drug Type: Tobacco Use: Former Smoker Tobacco Type: Amount or Packs/day: How Many Years: Alcohol Use: Yes Frequency: Quant:
== END ==
LOC: PAIN 03-10 09:41
PROVIDERS: ATTEND Clinical Nurse Specialist Adult Health
DX: M47.812 Spondylosis without myelopathy or radiculopathy, cervical region (principal); G89.4 Chronic pain syndrome; Z79.891 Long term (current) use of opiate analgesic; Z79.899 Other long term (current) drug therapy

== ENCOUNTER → 2021-06-08 | Outpatient (CLI) | payer OTHER ==
[~2021-06-08] VITALS: Ht 180.3 cm; Wt 87.5 kg
[~2021-06-08] MED LIST changes: +HYDROMORPHONE ER8 MG PO
[2021-06-08 09:00] VITALS: BP 141/72
--- NOTE | 2021-06-08 09:17 | NUR ---
Pain Clinic Assessment: 1. History of Osteoarthritis: SPINE History of Rheumatoid Arthritis: DENIES 2. Height: 5 ft. 11 in. 180.3 cm. Weight: 193.0 lb. oz. 87.544 kg. Patient's BMI: 26.9 3. Vital Signs: BP: 141/72 Pulse: 75 Resp: 16 Temp: 02 Sat: 100 ECG Mon: 4. Pain Intensity: 3 5. Fall Risk: Dizziness: N Needs help standing or walking: N Fallen in the last 3 months: N Fall risk comments: 6. Patient on Blood Thinner: None 7. History of Hypertension: N 8. Opioid Therapy greater than 6 weeks: Y Opiate Contract Signed: 08/29/17 9. Risk Assessment Tool Provided: LOW RISK 2 10. Functional Assessment Tool: 11. Recreational Drug Use: Never Drug Type: Tobacco Use: Former Smoker Tobacco Type: Amount or Packs/day: How Many Years: Alcohol Use: Yes Frequency: Special Occasions Quant: 1
== END ==
LOC: PAIN 08:15
PROVIDERS: ATTEND Clinical Nurse Specialist Adult Health
DX: G89.29 Other chronic pain (principal); M41.84 Other forms of scoliosis, thoracic region; M47.813 Spondylosis without myelopathy or radiculopathy, cervicothoracic region; Z79.899 Other long term (current) drug therapy